=== PATIENT | male | born 2000 | race Asian ===

== ENCOUNTER 2021-03-05 06:23 | Emergency (ER) | payer BC ==
[~2021-03-05] VITALS: Ht 175.3 cm; Wt 87.1 kg
[2021-03-05 06:30] VITALS: BP 137/73; TEMP 99.6
== END 2021-03-05 08:12 | disposition home or self-care (01) ==
LOC: ED 06:23
DX: J01.40 Acute pansinusitis, unspecified (principal)
CPT/HCPCS: 87635; 99283; U0003